=== PATIENT | female | born 1985 | race Caucasian/White ===

== ENCOUNTER 2017-06-20 16:55 | Emergency (ER) | payer MEDICAID ==
[~2017-06-20] VITALS: Ht 170.2 cm; Wt 108.9 kg
[2017-06-20] MEDS ORDERED: methylPREDNISolone SOD SUCC 125 MG/2 ML VL IM ONE (18:15)
[2017-06-20] MEDS ORDERED: diphenhdrAMINE HCL 25 MG CAP PO ONE (18:15)
[2017-06-20] MEDS ORDERED: EPINEPHrine HCL 1 MG/1 ML AMP SC ONE (18:30)
[2017-06-20 19:00] VITALS: BP 16/79
== END 2017-06-20 21:54 | disposition home or self-care (01) ==
LOC: ER 17:00
DX: T78.40XA Allergy, unspecified, initial encounter (principal); E07.9 Disorder of thyroid, unspecified; M32.9 Systemic lupus erythematosus, unspecified; Z98.51 Tubal ligation status; Z88.6 Allergy status to analgesic agent; Z88.8 Allergy status to other drugs, medicaments and biological substances; Z87.442 Personal history of urinary calculi
CPT/HCPCS: 96372; 99284; J0171; J2930

== ENCOUNTER 2018-12-02 07:27 | Emergency (ER) | payer MEDICAID ==
[~2018-12-02] VITALS: Ht 167.6 cm; Wt 108.9 kg
[2018-12-02 07:44] VITALS: BP 147/87
[2018-12-02] MEDS ORDERED: methylPREDNISolone SOD SUCC 125 MG/2 ML VL IM ONE (08:00)
[2018-12-02] MEDS ORDERED: EPINEPHrine HCL 1 MG/1 ML AMP SC ONE (08:00)
[2018-12-02] MEDS ORDERED: diphenhdrAMINE HCL 50 MG/1 ML VL IM ONE (08:15)
== END 2018-12-02 08:42 | disposition home or self-care (01) ==
LOC: ER 07:27
DX: T78.40XA Allergy, unspecified, initial encounter (principal); R21 Rash and other nonspecific skin eruption; L29.9 Pruritus, unspecified; I10 Essential (primary) hypertension; E07.9 Disorder of thyroid, unspecified; Z88.6 Allergy status to analgesic agent; Z87.442 Personal history of urinary calculi; Z98.51 Tubal ligation status; X58.XXXA Exposure to other specified factors, initial encounter
CPT/HCPCS: 96372; 99283; J0171; J1200; J2930

== ENCOUNTER 2020-09-10 19:25 | Emergency (ER) | payer MEDICAID ==
[~2020-09-10] VITALS: Ht 170.2 cm; Wt 90.7 kg
[2020-09-10 20:01] VITALS: BP 134/75
[2020-09-10 20:35] LABS: INR 0.97 (0.9-1.15); Partial Thromboplastin Time 24.8 sec (23.0-31.2)
[2020-09-10 20:40] LABS: Albumin 3.9 g/dL (3.4-5.0); BUN/Creatinine Ratio 15.4; Calcium 8.4 mg/dL (8.5-10.1); Potassium 3.6 mmol/L (3.5-5.1)
[2020-09-10 20:43] LABS: Bilirubin, Total 0.4 mg/dL (0.2-1.0); Total Protein 8.1 g/dL (6.4-8.2)
== END 2020-09-10 20:07 | disposition home or self-care (01) ==
LOC: EDSEX 19:25 → ER 19:25 → EDBD 19:25 → ER 20:07
DX: R53.1 Weakness (principal); R51.9 Headache, unspecified; Z53.21 Procedure and treatment not carried out due to patient leaving prior to being seen by health care provider
CPT/HCPCS: 36415; 80053; 85610; 85730